=== PATIENT | female | born 1975 | race Hispanic/Latino ===

== ENCOUNTER 2024-05-28 02:17 | Emergency (ER) | payer SELFPAY ==
[2024-05-28 03:03] LABS: Bacteria/HPF None Seen HPF (None Seen); Bilirubin Negative (Negative); Blood, Urine Negative (Negative); CAUTI Indications for Culture Dysuria,urgency,freq; Clarity Clear (Clear); Glucose, Urine (Dipstick) Normal (Negative); Ketone, Urine Negative (Negative); Leukocyte Negative Leu/uL (Negative); Nitrite Negative (Negative); Protein, Urine (Dipstick) 20 mg/dL (Neg-Trace); RBC/HPF 0-3 HPF (0-3); Specific Gravity, Urine 1.031 (1.002-1.036); Squamous Epithelial 0-3 HPF (0-3); WBC/HPF 0-3 HPF (0-3)
[2024-05-28 03:06] LABS: Urine Culture Reflex No No
[2024-05-28] MEDS ORDERED: Fluconazole 100 MG TAB ONE (03:16)
[2024-05-29 11:10] LABS: Chlamydia by PCR, Vaginal Swab Not Detected (NotDetected); GC by PCR, Vaginal Swab Not Detected (NotDetected); Tric.vaginalis PCR,Vaginal Sw DETECTED (NotDetected)
== END 2024-05-28 03:19 | disposition home or self-care (01) ==
LOC: ERS 02:17
DX: N89.8 Other specified noninflammatory disorders of vagina (principal); R30.0 Dysuria
CPT/HCPCS: 81001; 87491; 87591; 87661; 99283